=== PATIENT | male | born 1945 | race Caucasian/White ===

== ENCOUNTER 2017-08-05 09:28 | Day surgery (SDC) | payer MEDICARE ==
[2017-08-02 12:40] LABS: BASOPHILS % (AUTO) 0.8 % (0.0-5.0); HEMATOCRIT 41.3 % (42-54); LYMPHOCYTES % (AUTO) 33.3 % (21.0-51.0); MEAN CORPUSCULAR HEMOGLOBIN 33.5 pg (27.0-33.0); MEAN CORPUSCULAR HGB CONC 34.6 g/dL (32.0-36.0); MEAN CORPUSCULAR VOLUME 96.9 fL (79-99); MONOCYTES % (AUTO) 7.7 % (3.0-13.0); NEUTROPHILS % (AUTO) 54.2 % (40.0-77.0); PLATELET COUNT (AUTO) 215 K/uL (130-400); RED BLOOD CELL COUNT(AUTO) 4.27 MIL/uL (4.50-6.20); RED CELL DISTRIBUTION WIDTH 13.7 % (11.0-15.5); WHITE BLOOD COUNT (AUTO) 6.9 K/uL (4.8-10.8)
[2017-08-02 12:57] LABS: POTASSIUM 4.6 mmol/L (3.5-5.1)
[2017-08-02 13:15] LABS: APPEARANCE,URINE CLEAR (CLEAR); BACTERIA,URINE Rare /HPF (None Seen); BILIRUBIN,URINE NEGATIVE (NEGATIVE); COLOR,URINE YELLOW (YELLOW); GLUCOSE, URINE (UA) NEGATIVE (NEGATIVE); KETONES,URINE 5 mg/dL (NEGATIVE); LEUKOCYTE ESTERASE ,URINE NEGATIVE (NEGATIVE); NITRATE,URINE NEGATIVE (NEGATIVE); OCCULT BLOOD,URINE NEGATIVE (NEGATIVE); PH,URINE 5.5 (5.0-8.0); PROTEIN,URINE NEGATIVE (NEGATIVE); SQUAMOUS EPITHELIAL CELL,UR Rare /LPF (0-2); UROBILINOGEN,URINE 0.2 mg/dL (0.2-1.0); WBC,URINE 0-1 /HPF (0-1)
[2017-08-02 13:16] VITALS: BP 160/87
[2017-08-02 13:22] LABS: INR 0.96 (0.85-1.15); PARTIAL THROMBOPLASTIN TIME 24.3 SEC (26.3-35.5); PROTHROMBIN TIME 10.1 SEC (9.6-11.6)
[~2017-08-05] VITALS: Ht 190.5 cm; Wt 90.2 kg
[2017-08-05] VITALS (17 sets, daily range): BP systolic 105–134; BP diastolic 69–91
[2017-08-05] MEDS: GENTAMICIN 80 MG/NS 100 ML PB 100 ML IV SCH ×2 (06:00→10:50)
[2017-08-05] MEDS: CEFTRIAXONE SODIUM 1 GM IVP SCH ×2 (06:00→10:50)
[~2017-08-05 09:28] MED LIST: ASPI-555 PO; LOSA100T29 PO; MITOMYCIN 40 MG VIAL IV SCH; MULT-1077 PO; SIMV20TA2 PO; VITA400C70 PO; ZINC50TA38 PO; [UNRECOGNIZED DRUG - OTHER] PO
[2017-08-05] MEDS ORDERED: LACTATED RINGERS 1000ML 1,000 ML IV ONE (10:25)
[2017-08-05] MEDS ORDERED: MITOMYCIN 40 MG VIAL ONE (10:27)
[2017-08-05] MEDS ORDERED: MIDAZOLAM HCL 1 MG/ML 2ML VIAL ONE (10:38)
[2017-08-05] MEDS ORDERED: PROPOFOL 10 MG/ML 20ML VIAL IV ONE (10:38)
[2017-08-05] MEDS ORDERED: FENTANYL CITRATE PF 50 MCG/1 ML 2ML VIAL ONE ×2 (10:38→11:52)
[2017-08-05] MEDS ORDERED: ISOVUE-370 50ML VIAL IV ONE (10:42)
[2017-08-05] MEDS ORDERED: ONDANSETRON HCL 4 MG/2 ML VIAL ONE (11:40)
[2017-08-05] MEDS ORDERED: PHENYLEPHRINE HCL 10 MG/ML 1ML VIAL IV ONE (11:40)
[2017-08-05] MEDS ORDERED: SODIUM CHLORIDE 0.9% 10 ML VIAL ONE (11:40)
[2017-08-05] MEDS ORDERED: GLYCOPYRROLATE 0.2 MG/ML 5 ML VIAL ONE (11:40)
[2017-08-05] MEDS ORDERED: DEXAMETHASONE SOD PHOSPHATE 10MG/ML 1ML VIAL ONE (11:40)
[2017-08-05] MEDS ORDERED: CIPR-278 PO (13:31)
[2017-08-05] MEDS ORDERED: TYL3 PO (13:32)
[2017-08-05] MEDS ORDERED: BELLADONNA (13:34)
[2017-08-05] MEDS ORDERED: BELLADONNA RC (13:36)
== END 2017-08-05 14:40 | disposition home or self-care (01) ==
LOC: DAH 09:28 → EDSEX 11:00 → DAH 14:40
PROVIDERS: ATTEND Urology
DX: C67.9 Malignant neoplasm of bladder, unspecified (principal); I10 Essential (primary) hypertension
CPT/HCPCS: 36415; 52235; 71045; 74420; 80048; 81001; 85025; 85610; 85730; 87088; 88305; 88307; 93005; A4218; A4354; A4358; C1758; J0696; J1100; J1580; J2250; J2370; J2405; J2704; J3010 ×2; J3490; J7120 ×2; J9280; Q9967

== ENCOUNTER → 2023-05-24 | Outpatient (CLI) | payer MEDICARE ==
[~2023-05-24] MED LIST changes: -ASPI-555 PO; +ASPI-556 PO; +BELLADONNA RC; +CIPR-278 PO; -LOSA100T29 PO; +LOSA100T59 PO; -MITOMYCIN 40 MG VIAL IV SCH; +SIMV-343 PO; -SIMV20TA2 PO; +TYL3 PO; +VITA-348 PO; -VITA400C70 PO; -ZINC50TA38 PO; +ZINC50TA71 PO
== END | disposition home or self-care (01) ==
LOC: RAH 09:46
PROVIDERS: ATTEND Family Medicine
DX: K76.0 Fatty (change of) liver, not elsewhere classified (principal); K80.50 Calculus of bile duct without cholangitis or cholecystitis without obstruction; R10.31 Right lower quadrant pain; N32.89 Other specified disorders of bladder
CPT/HCPCS: 76700; 76857